=== PATIENT | male | born 1995 | race Caucasian/White ===

== ENCOUNTER 2016-07-05 07:56 | Emergency (ER) | payer MEDICAID, SELFPAY ==
[2016-07-05] MEDS ORDERED: DUONEB INH ONE (08:26)
[2016-07-05] MEDS ORDERED: ALBUTEROL HFA INH ONE (09:41)
== END 2016-07-05 10:00 | disposition home or self-care (01) ==
LOC: ER 07:56
DX: R05 Cough (principal); R06.2 Wheezing; F17.210 Nicotine dependence, cigarettes, uncomplicated
CPT/HCPCS: 71020; 94640